=== PATIENT | female | born 1930 | race Hispanic/Latino ===

== ENCOUNTER 2017-07-01 08:41 | Day surgery (SDC) | payer MEDICARE, OTHER ==
[~2017-07-01 08:41] MED LIST: ANCEF/STERILE WATER 2 GM/20 ML 2 GM/20 ML SYRINGE IV NR; NACL 0.9% 1000 ML 1,000 ML IV SCH
[2017-07-01] MEDS ORDERED: NACL BACTERIOSTATIC INFILTRATI ONE (09:45)
--- NOTE | 2017-07-01 10:12 | Anesthesia Consultation ---
Anesthesia Consult and Med Hx Date of service: 07/01/17 - Airway Anesthetic Teeth Evaluation: Edentulous Mental/Hyoid Distance: Adequate Mallampati Class: Class I Intubation Access Assessment: Good - Pulmonary Exam CTA: Yes - Cardiac Exam Cardiac Exam: RRR - Pre-Operative Health Status ASA Pre-Surgery Classification: ASA4 Proposed Anesthetic Plan: General, MAC - Pulmonary Hx Smoking: Yes (former - stopped 2 months ago) - Cardiovascular System Hx Hypertension: Yes (Echo 05/30/17 Moderate concentric LVH, mild global hypokinesis EF 45-50%) Hx Peripheral Vascular Disease: Yes - Central Nervous System Hx Psychiatric Problems: Yes - Endocrine Hx End Stage Renal Disease: Yes - Other Systems Hx Alcohol Use: No Hx Substance Use: No Hx Cancer: No
[2017-07-01 10:17] LABS: Basophils # (Auto) 0.1 K/mm3 (0.0-0.1); Basophils % (Auto) 1.5 % (0.0-1.8); Eosinophils # (Auto) 0.1 K/mm3 (0.0-0.4); Eosinophils % (Auto) 1.9 % (0.0-4.3); Hematocrit 30.3 % (30.3-42.9); Hemoglobin 10.5 gm/dl (10.1-14.3); Lymphocytes # (Auto) 1.2 K/mm3 (1.2-5.4); Lymphocytes % (Auto) 21.1 % (13.4-35.0); Mean Corpuscular HGB Conc 35 % (30-34); Mean Corpuscular Hemoglobin 34 pg (28-32); Mean Corpuscular Volume 99 fl (79-97); Monocytes # (Auto) 0.4 K/mm3 (0.0-0.8); Monocytes % (Auto) 6.5 % (0.0-7.3); Platelet Count 180 K/mm3 (140-440); Red Blood Count 3.06 M/mm3 (3.65-5.03); Red Cell Distribution Width 13.1 % (13.2-15.2)
--- NOTE | 2017-07-01 10:18 | Anesthesia Day of Surgery ---
Anesthesia Day of Surgery - Day of Surgery Patient Examined: Yes Patient H&P Reviewed: Yes Patient is NPO: Yes Beta Blockers: Yes Cardiac Clearance: Yes
[2017-07-01] MEDS ORDERED: PEPCID PO NR (11:00)
[2017-07-01] MEDS ORDERED: RIFADIN ONE (11:21)
[2017-07-01] MEDS ORDERED: MARCAINE 0.5% INFILTRATI ONE ×4 (11:21→13:22)
[2017-07-01] MEDS ORDERED: HEPARIN 10,000 UNITS/10 ML ONE (11:21)
[2017-07-01] MEDS ORDERED: PROTAMINE SULFATE ONE (11:21)
[2017-07-01] MEDS ORDERED: NACL 0.9% 250ML 250 ML ONE (11:22)
[2017-07-01] MEDS ORDERED: SUBLIMAZE ONE (11:23)
[2017-07-01] MEDS ORDERED: XYLOCAINE MPF 2% ONE (11:24)
[2017-07-01] MEDS ORDERED: ZOFRAN ONE (11:25)
[2017-07-01] MEDS ORDERED: AMIDATE IV ONE (11:25)
[2017-07-01] MEDS ORDERED: ePHEDrine SULFATE ONE (11:54)
[2017-07-01] MEDS ORDERED: DECADRON ONE (11:59)
[2017-07-01] MEDS ORDERED: ROBINUL ONE (12:24)
[2017-07-01] MEDS ORDERED: NEO SYNEPHRINE/NS Syringe(OR USE) IV ONE (12:24)
[2017-07-01] MEDS ORDERED: NACL 0.9% IR ONE (12:58)
[2017-07-01] MEDS ORDERED: HEPARIN 10,000 UNITS/10 ML 1,000 UNIT in NACL 0.9% 250ML 250 ML IR ONE (12:59)
--- NOTE | 2017-07-01 13:46 | Short Stay Summary ---
Short Stay Documentation Date of service: 07/01/17 Narrative H&P: See H&P - History H&P: obtained from office - Allergies and Medications Current Medications: Allergies buspirone [From BuSpar] Allergy (Verified 06/26/17 15:32) tremors Home Medications Medication Instructions Recorded Confirmed Last Taken Type Amlodipine Besylate/Benazepril 1 each PO QDAY 06/26/17 06/26/17 07/01/17 06:40 History [Lotrel 5-40 mg] Aspirin [Lo-Dose Aspirin EC] 81 mg PO DAILY 06/26/17 06/26/17 06/30/17 History AtorvaSTATin [Lipitor] 20 mg PO QHS 06/26/17 06/26/17 06/30/17 History Ergocalciferol(Vitamin D2)(Nf) 1,000 unit PO DAILY 06/26/17 06/26/17 06/30/17 History [Vitamin D (Nf)] Hydralazine HCl 50 mg PO BID 06/26/17 06/26/17 06/30/17 History LORazepam [Ativan] 0.5 mg PO DAILY 06/26/17 06/26/17 06/30/17 History Labetalol [Normodyne] 200 mg PO BID 06/26/17 06/26/17 07/01/17 06:40 History Pantoprazole [Protonix] 40 mg PO QDAY 06/26/17 06/26/17 07/01/17 06:40 History Sevelamer Carbonate 800 mg PO TID 06/26/17 06/26/17 06/30/17 History Vit B Comp C/Folic Acid/Vit D3 1 each PO DAILY 06/26/17 06/26/17 06/30/17 History [Dialyvite 800 Plus D Wafer] traZODone [Desyrel] 50 mg PO QHS 06/26/17 07/01/17 06/30/17 History Active Medications Cefazolin Sodium (Ancef/Sterile Water 2 Gm/20 Ml) 2 gm in 20 mls @ 80 mls/hr IV PREOP NR PRN Reason: Protocol Stop: 07/01/17 23:59 Sodium Chloride (Nacl 0.9% 1000 Ml) 1,000 mls @ 42 mls/hr IV DIRECT ELDER Last Admin: 07/01/17 10:05 Dose: 42 mls/hr - Brief post op/procedure progress note Date of procedure: 07/01/17 Pre-op diagnosis: ESRD Post-op diagnosis: same Procedure: Creation of Left Brachial Artery to Left Axillary Vein AVG with 5 mm Bovine Graft Anesthesia: YESSI Surgeon: DELFINO ARAIZA Estimated blood loss: minimal Pathology: none Condition: stable - Disposition Condition at discharge: Good Disposition: DC-01 TO HOME OR SELFCARE Short Stay Discharge Plan Activity: other (No heavy lifting with left arm) Wound: open to air, keep clean and dry, other (Okay to wash the wound with soap and water but do no soak in water) Follow up with: DELFINO ARAIZA MD [Staff Physician] - 14 Days Prescriptions: HYDROcodone/APAP 5-325 [[place] 5/325] 1 each PO Q4HR PRN #40 tablet PRN Reason: Pain
--- NOTE | 2017-07-01 13:48 | Operative Report ---
Operative Report Operative Report: Date of procedure: 07/01/2017 Pre-operative diagnosis: End-Stage Renal Disease Post-operative diagnosis: Same Procedure(s): 1. Creation of Left Brachial Artery to Axillary Vein AV Graft with 5 mm Bovine Graft Surgeon: Kurt Mtz MD Fermenter Helper: None Anesthesia: General Endotracheal Anesthesia EBL: Minimal Counts: Correct Complications: None Condition: Stable Findings: Successful Creation of Left Arm AV Graft with a palpable thrill and palpable radial pulse at the completion of the case. Specimen: None Indication: The patient is an 87-year-old female with history of end-stage renal disease who is currently on hemodialysis through a right internal jugular permacath. She is in need of long-term dialysis access and requires a graft placement. She was given the risks, benefits, and alternative procedures and consented to the procedure. Description of Procedure: The patient was brought to the operating room and laid in supine position after general endotracheal anesthesia was achieved the left arm was prepped and draped in normal sterile fashion. A longitudinal incision was made on the medial aspect of the arm just proximal to the antecubital crease and carried down to the brachial artery using sharp dissection. The brachial artery was dissected out circumferentially both proximally and distally and controlled with vessel loops. A second incision was created in longitudinal fashion on the medial aspect of the arm just distal to the axillary crease and carried down to the axillary vein using sharp dissection. Axillary vein was dissected out circumferentially and controlled with a vessel loop. I then used a Abeba- Wick tunneler to tunnel from the brachial artery incision to the axillary vein incision and then put an 5 mm bovine through the tunnel. I infused with heparinized saline to ensure that it was not twisted or kinked. I put the brachial artery vessel loops on tension controlling the flow and then created an arteriotomy using an 11 blade and Downs scissors. I beveled the graft and created an end-to-side anastomosis using 6-0 Prolene running fashion. I clamped the graft just proximal to the anastomosis and then released the vessel loops restoring flow in the brachial artery. I placed quick clot in incision to achieve hemostasis. I cut the proximal end of the graft to the appropriate length and beveled the graft in preparation for a venous anastomosis. I controlled the axillary vein a Satinsky clamp and created a venotomy using an 11 blade and Downs scissors. I created an end to side anastomosis using a 6-0 Prolene in running fashion. Prior to completing the anastomosis I flushed the graft to ensure there was no thrombus and then completed the anastamosis. I released all clamps allowing flow into the AV graft which had an excellent thrill. I packed the wound with quick clot to achieve hemostasis. I anesthetized both wounds with Marcaine and then closed both wounds in 2 layers using 3-0 Vicryl in running fashion in the deep dermal layer and 4-0 Monocryl in running fashion the subcuticular layer. I dressed both wounds with Surgicel. The patient tolerated the procedure well all sponge needle and instrument counts were correct the patient was taken to recovery in stable condition.
--- NOTE | 2017-07-01 13:58 | Post Anesthesia Evaluation ---
- Post Anesthesia Evaluation Patient Participated: Yes Airway Patent: Yes Stable Respiratory Function: Yes Nausea/Vomiting: No Temp > 96.8F: Yes Pain Manageable: Yes Adequeate Hydration: Yes Anesthesia Complications: No Block Receding Appropriately: Not Applicable Patient on Ventilator: No
[2017-07-01] MEDS ORDERED: ZOFRAN IV PRN (13:59)
[2017-07-01] MEDS ORDERED: SUBLIMAZE IV PRN (13:59)
[2017-07-01 16:19] VITALS: BP 130/77
== END 2017-07-01 16:02 | disposition home or self-care (01) ==
LOC: OR 08:41
PROVIDERS: ATTEND Surgery Vascular Surgery
DX: I13.2 Hypertensive heart and chronic kidney disease with heart failure and with stage 5 chronic kidney disease, or end stage renal disease (principal); N18.6 End stage renal disease; I50.9 Heart failure, unspecified; I73.9 Peripheral vascular disease, unspecified; Z79.82 Long term (current) use of aspirin; Z79.899 Other long term (current) drug therapy; Z88.8 Allergy status to other drugs, medicaments and biological substances; Z87.891 Personal history of nicotine dependence
CPT/HCPCS: 36415; 36830; 80048; 85025; C1768; J0690; J1100; J1644; J2370; J2405; J2720; J3010; J3490; J7030; J7050

== ENCOUNTER 2017-12-04 10:29 | Day surgery (SDC) | payer MEDICARE, OTHER ==
[2017-12-04 11:27] LABS: Basophils # (Auto) 0.1 K/mm3 (0.0-0.1); Basophils % (Auto) 0.8 % (0.0-1.8); Eosinophils # (Auto) 0.1 K/mm3 (0.0-0.4); Hematocrit 31.2 % (30.3-42.9); Hemoglobin 10.8 gm/dl (10.1-14.3); Lymphocytes # (Auto) 1.4 K/mm3 (1.2-5.4); Lymphocytes % (Auto) 21.8 % (13.4-35.0); Mean Corpuscular HGB Conc 35 % (30-34); Mean Corpuscular Hemoglobin 35 pg (28-32); Mean Corpuscular Volume 102 fl (79-97); Monocytes # (Auto) 0.5 K/mm3 (0.0-0.8); Monocytes % (Auto) 8.1 % (0.0-7.3); Platelet Count 197 K/mm3 (140-440); Red Blood Count 3.07 M/mm3 (3.65-5.03); Red Cell Distribution Width 13.3 % (13.2-15.2)
[2017-12-04 11:36] LABS: INR 0.93 (0.87-1.13)
[2017-12-04 11:37] LABS: Partial Thromboplastin Time 28.1 Sec. (24.2-36.6)
[2017-12-04 11:42] LABS: Calcium 9.1 mg/dL (8.4-10.2)
[2017-12-04] MEDS ORDERED: HEPARIN/NS 5000 UNIT/500ML(CATH LAB) 1,000 ML IR ONE (14:02)
[2017-12-04] MEDS ORDERED: HEPARIN 10,000 UNITS/10 ML ONE (14:02)
[2017-12-04] MEDS ORDERED: XYLOCAINE 2% INFILTRATI ONE (14:03)
[2017-12-04] MEDS ORDERED: NACL 0.9% 500 ML 500 ML ONE ×2 (14:06→14:42)
[2017-12-04] MEDS ORDERED: ANCEF/STERILE WATER 2 GM/20 ML 0 GM/0 ML SYRINGE IV ONE (14:25)
[2017-12-04] MEDS: SUBLIMAZE ONE ×2 (14:33→14:56)
[2017-12-04] MEDS: VERSED ONE ×2 (14:33→14:56)
[2017-12-04] MEDS ORDERED: HEPARIN/NS 5000 UNIT/500ML(CATH LAB) 500 ML IR ONE (15:05)
--- NOTE | 2017-12-04 16:37 | Post Operative Note ---
Pre-op diagnosis: thrombosed hemodialysis graft left arm Post-op diagnosis: same Findings: Venous outflow stenosis improved with angioplasty. Central central veins clear. Procedure: Percutaneous thrombectomy hemodialysis graft left arm #2 percutaneous balloon angioplasty performed dialysis circuit duplex guided cannulation AV graft Anesthesia: other (moderate sedation start time 1433 termination time 1558 total sedation time 85 minutes) Surgeon: EMELYN AGUAYO Estimated blood loss: minimal Pathology: none Condition: stable Disposition: same day
--- NOTE | 2017-12-04 16:44 | Short Stay Summary ---
Short Stay Documentation Date of service: 12/04/17 Narrative H&P: Ad[facility] to [facility] for outpatient percutaneous thrombectomy of a thrombosed AV graft - History H&P: obtained from office - Allergies and Medications Current Medications: Allergies buspirone [From BuSpar] Allergy (Verified 06/26/17 15:32) tremors Home Medications Medication Instructions Recorded Confirmed Last Taken Type Aspirin [Lo-Dose Aspirin EC] 81 mg PO DAILY 06/26/17 12/04/17 12/03/17 History 81mg AtorvaSTATin [Lipitor] 20 mg PO QHS 06/26/17 12/04/17 12/03/17 History 20mg Ergocalciferol(Vitamin D2)(Nf) 1,000 unit PO DAILY 06/26/17 12/04/17 12/03/17 History [Vitamin D (Nf)] 1000 units Labetalol [Normodyne TAB] 200 mg PO BID 06/26/17 12/04/17 12/03/17 History 200mg Vit B Comp C/Folic Acid/Vit D3 1 each PO DAILY 06/26/17 12/04/17 12/03/17 History [Dialyvite 800 Plus D Wafer] 1 traZODone [Desyrel] 50 mg PO QHS 06/26/17 12/04/17 12/03/17 History 50mg Escitalopram [Lexapro] 20 mg PO DAILY 12/04/17 12/04/17 12/03/17 History 20mg Active Medications Cefazolin Sodium (Ancef/Sterile Water 2 Gm/20 Ml) 2 gm in 20 mls @ 80 mls/hr IV PREOP NR; Protocol Stop: 12/04/17 23:59 Sodium Chloride (Nacl 0.9% 1000 Ml) 1,000 mls @ 42 mls/hr IV DIRECT ELDER - Brief post op/procedure progress note Date of procedure: 12/04/17 Pre-op diagnosis: post AV graft left arm Post-op diagnosis: same Procedure: A cutaneous AV graft thrombectomy, balloon angioplasty peripheral dialysis circuit, duplex guided cannulation AV graft Anesthesia: other (moderate sedation total moderate sedation 85 minutes) Findings: Venous outflow stenosis. Successful thrombectomy. Surgeon: EMELYN AGUAYO Estimated blood loss: minimal Pathology: none Condition: stable - Hospital course Hospital course: Small amount of edema in the soft tissue near the antecubital fossa secondary to infiltration. No hematoma no pseudoaneurysm. AV graft with excellent thrill and bruit. - Disposition Condition at discharge: Stable Disposition: DC-01 TO HOME OR SELFCARE - Discharge Diagnoses (1) Thrombosis of arteriovenous graft due to arteriovenous access device for hemodialysis Status: Acute Short Stay Discharge Plan Activity: advance as tolerated Weight Bearing Status: Full Weight Bearing Diet: renal Wound: keep clean and dry Special Instructions: no heavy lifting Follow up with: LANCE VALDEZ MD [Primary Care Provider] - 7 Days MAICO CHINO MD [Staff Physician] - 7 Days Forms: AVG Arteriogram D/CInstruction
[2017-12-04 17:00] VITALS: BP 145/25
--- NOTE | 2017-12-04 21:21 | Operative Report ---
PREOPERATIVE DIAGNOSIS: Thrombosed arteriovenous graft. POSTOPERATIVE DIAGNOSIS: Thrombosed arteriovenous graft. OPERATIVE PROCEDURE: 1. Percutaneous mechanical thrombolysis and thrombectomy of hemodialysis graft, left arm. 2. Percutaneous balloon angioplasty of the peripheral dialysis circuit. 3. Duplex guided cannulation AV graft. SURGEON: Agus Sprague MD ANESTHESIA: Local with moderate. Total moderate sedation time 85 minutes. ESTIMATED BLOOD LOSS: Minimal. PATHOLOGY: None. CONDITION: Stable. SPECIMENS: None. SURGICAL FINDINGS: Thrombosed AV graft with high-grade venous outflow stenosis successfully treated with angioplasty. DESCRIPTION OF PROCEDURE: With the patient in supine position, the left arm extended. The entire extremity was then prepped and draped using standard sterile technique. Access was obtained to the AV graft using micropuncture technique and a 6-Kinyarwanda introducer was placed in the graft and oriented towards the venous outflow. A guidewire was advanced successfully through the stenotic distal lesion and a vertebral catheter was then used to inject contrast medially which showed that the central circulation was widely patent. We then replaced the vertebral catheter with an AngioJet thrombectomy device and thrombus was aspirated. Contrast showed a high-grade venous outflow stenosis. This was treated with an 8 x 4 balloon. This improved significantly, although this was treated later in the procedure with more vigorous angioplasty to obtain a larger lumen. I then employed crossed catheter technique by using micropuncture technique inserting a new catheter towards the arterial limb. I initially placed the sheath, but it became dislodged, therefore, I used a duplex scan to re-cannulate the graft and replaced with a new sheath. Once this was done, I then was advanced an AngioJet to the level of the arterial anastomosis and withdrew it. I then was able to manipulate a Glidewire across the anastomosis and proximally up the arm. A Slava catheter was then used to dislodge the final dislodge the fibrin plug with return of flow. There was still residual thrombus, which was removed using maceration and aspiration technique. This resulted in a complete clot removal and return of thrill and bruit. There was still a residual stenosis and I repeated the angioplasty at higher pressure, which would leave the narrowing. The graft was now functioning with an excellent thrill and bruit. I then removed all guidewires, catheters, removed each sheath over a pursestring chromic suture. The patient tolerated the procedure well. She had a small amount of puffiness and infiltration site near a distal forearm, but it was superficial and nontender. The graft itself was functioning well without any hematoma formation. The patient returned to the recovery area in stable condition having tolerated the procedure well. Sponge and needle counts correct. AV graft is functioning well. JOB# [id number] AML/NTS
== END 2017-12-04 17:09 | disposition home or self-care (01) ==
LOC: CATHLABREC 10:29
PROVIDERS: ATTEND Surgery Vascular Surgery
DX: T82.868A Thrombosis due to vascular prosthetic devices, implants and grafts, initial encounter (principal); I12.0 Hypertensive chronic kidney disease with stage 5 chronic kidney disease or end stage renal disease; N18.6 End stage renal disease; E78.00 Pure hypercholesterolemia, unspecified; I73.9 Peripheral vascular disease, unspecified; F41.9 Anxiety disorder, unspecified; Z88.8 Allergy status to other drugs, medicaments and biological substances; Z79.82 Long term (current) use of aspirin; Z98.890 Other specified postprocedural states; Z87.891 Personal history of nicotine dependence; Z86.73 Personal history of transient ischemic attack (TIA), and cerebral infarction without residual deficits
CPT/HCPCS: 36415; 36905; 80048; 85025; 85610; 85730; 99156; 99157; C1725; C1751; C1757; C1769; C1894; J1644; J2250; J3010; J7040; J0690; Q9967